=== PATIENT | male | born 1965 | race Caucasian/White ===

== ENCOUNTER 2018-04-17 12:01 | Observation (INO) | payer MEDICARE ==
[~2018-04-17] VITALS: Ht 188 cm; Wt 106.7 kg
[2018-04-17 12:33] LABS: BASOPHILS ABSOLUTE AUTO 0.05 K/mm3 (0.00-0.23); BASOPHILS PERCENT AUTO 1 % (0-2); EOSINOPHILS ABSOLUTE AUTO 0.07 K/mm3 (0.00-0.68); EOSINOPHILS PERCENT AUTO 1 % (0-6); Hematocrit 46.7 % (37.0-53.0); Hemoglobin 16.1 g/dL (13.5-17.5); IMMATURE GRAN ABSOLUTE AUTO 0.08 K/mm3 (0.00-0.10); IMMATURE GRAN PERCENT AUTO 1 % (0-1); LYMPHOCYTES ABSOLUTE AUTO 1.93 K/mm3 (0.84-5.20); LYMPHOCYTES PERCENT AUTO 24 % (21-46); MONOCYTES ABSOLUTE AUTO 0.57 K/mm3 (0.16-1.47); MONOCYTES PERCENT AUTO 7 % (4-13); Mean Corpuscular HGB Conc 34.5 g/dL (31.5-36.5); Mean Corpuscular Volume 90 fL (80-100); Mean Platelet Volume 9.5 fL (9.1-12.4); NEUTROPHILS ABSOLUTE AUTO 5.45 K/mm3 (1.96-9.15); NEUTROPHILS PERCENT AUTO 67 % (41-73); Platelet Count 217 K/mm3 (150-400); RDW Coefficient Variation 12.4 % (11.7-14.2); RDW Standard Deviation 40.8 fL (35.1-46.3); Red Blood Cell Count 5.19 M/mm3 (4.30-5.90); White Blood Cell Count 8.15 K/mm3 (4.00-11.30)
[2018-04-17 12:55] LABS: Alanine Aminotransfer (ALT/SGP 29 U/L (12-78); Albumin/Globulin Ratio 1.1 (0.8-1.8); Alk Phos 62 U/L (50-136); Anion Gap 4 mmol/L (6-16); Aspartate Aminotrans (AST/SGOT 19 U/L (12-37); Bilirubin, Total 0.2 mg/dL (0.1-1.0); Blood Urea Nitrogen 13 mg/dL (8-24); Bun/Creatinine Ratio 15.9 (12.0-20.0); CO2, Blood 28 mmol/L (21-32); Chloride, Blood 105 mmol/L (98-108); Creatinine, Blood 0.82 mg/dL (0.60-1.20); Globulin, Blood 3.6 g/dL (2.2-4.0); Glomerular Filtration Rate >60 (60-); Glucose, Blood 99 mg/dL (70-99); Potassium, Blood 4.6 mmol/L (3.5-5.5); Sodium, Blood 137 mmol/L (136-145); Total Protein, Blood 7.6 g/dL (6.4-8.2); Troponin I 0.036 ng/mL (0.000-0.040)
[2018-04-17] MEDS ORDERED: OXYCODONE HCL E20 MG PO (13:47)
[2018-04-17] MEDS ORDERED: METO50ER PO (13:48)
[2018-04-17] MEDS ORDERED: OMEPRAZOLE MAGN20 MG PO (13:48)
[2018-04-17] MEDS ORDERED: CELE200 PO (13:48)
[2018-04-17] MEDS ORDERED: CYCL10 PO (13:49)
[2018-04-17] MEDS ORDERED: Zantac150 MG PO (13:50)
--- NOTE | 2018-04-17 18:35 | NUR ---
SHIFT SUMMARY PATIENT PLEASANT. ALERT AND ORIENTED INDEPENDENT. PATIENT ADMITTED UNDER OBSERVATION, HE IS TO HAVE A STRESS TEST TOMORROW. 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 HE DENIES ANY ACUTE CONCERNS. HE HAS A HISTORY OF ANGINA WITH NO CAUSE, AND DENIES HISTORY OF HEART ATTACK.
--- NOTE | 2018-04-18 04:48 | NUR ---
SHIFT SUMMARY PT SLEPT T/O NIGHT. AOX4. VSS. REPORTED 3/10 L. CHEST CRAMPING LAST NIGHT BUT DENIED NEED FOR ANY PAIN MEDICATION, INSTEAD ASKED FOR PECID & WAS MEDICATED PER ORDERS. THIS AM PT DENIES ANY CHEST PAIN & STATES HE IS FEELING "OKAY". PT DENIES SOB, CHILLS OR N/V. PT NPO @ THIS TIME PER ORDERS DUE TO PENDING TIME OF STRESS TEST. CALL LIGHT IS IN REACH & WILL CONT. TO MONITOR PT UNTIL DAY SHIFT RN ARRIVES.
[2018-04-18 08:21] LABS: CHOL/HDL RATIO 6.5; Cholesterol 183 mg/dL (50-200); HDL Cholesterol 28 mg/dL (>39); LDL/HDL RATIO 3.9; Low Density Lipoprotein Chol 110 mg/dL (0-110); Triglycerides 225 mg/dL (30-160); Very Low Density Lipoprot Chol 45 mg/dL (6-32)
--- NOTE | 2018-04-18 08:24 | NUR ---
HERE TO SEE.
--- NOTE | 2018-04-18 08:28 | NUR ---
PER PATIENT REFUSES ANGIO HERE, WANTS TO HAVE PROCEDURE IN [facility]. STS WILL CHECK MEDS TO SEE IF ANY NEED TO BE CHANGED. CALLED DR. LAU AND STS SHE WILL COME AND SEE PATIENT.
[2018-04-18] MEDS ORDERED: ATOR40TA PO (10:46)
[2018-04-18] MEDS ORDERED: CLOP75 PO (10:46)
[2018-04-18] MEDS ORDERED: NITR.4SL SL (10:48)
--- NOTE | 2018-04-18 11:15 | NUR ---
REVIEW [facility] INSTRUCTIONS. REVIEW NEW MEDS THAT WERE FAXED TO [facility]. AWARE IF HAS CHEST PAIN TO CALL HIS DOCTOR EVEN IF NITRO HELPS. AWARE IF NITRO DOES NOT HELP TO TAKE AMBULANCE TO [facility]. [facility] DOCTOR HAZEL IN [place] HAS ARRANGED FOR CARDIOLOGY F/U IN [employer] [facility]. AWARE TO CALL BOTH PLACES AND MAKE SURE HE IS SEEN WITHIN NEXT FEW DAYS. ANSWER ALL QUESTIONS. DENIES ANY CHEST PAIN AT THIS TIME. AWARE THAT HE NEEDS ANGIOGRAM HE MAKE NEED STENTS. [facility] WANTS TO HAVE ANGUIOGRAM IN [facility] AND [facility] IS AWARE OF THE RISK OF LEAVING HERE WITHOUT HAVING PROCEDURE. IN W/C W/ESCORT TO POV W/ 2 ADULTS.
== END 2018-04-18 11:31 | disposition home or self-care (01) ==
LOC: ER 12:01 → MEDS 12:02 → ENPENDDIS 04-18 10:00 → MEDS 04-18 11:31
PROVIDERS: Emergency Medicine; ADMIT Family Medicine
DX: I21.4 Non-ST elevation (NSTEMI) myocardial infarction (principal); I10 Essential (primary) hypertension; E78.5 Hyperlipidemia, unspecified; Q07.00 Arnold-Chiari syndrome without spina bifida or hydrocephalus; G89.29 Other chronic pain; K21.9 Gastro-esophageal reflux disease without esophagitis; F17.200 Nicotine dependence, unspecified, uncomplicated; Z88.0 Allergy status to penicillin; Z88.5 Allergy status to narcotic agent; Z88.8 Allergy status to other drugs, medicaments and biological substances; Z79.899 Other long term (current) drug therapy; Z82.49 Family history of ischemic heart disease and other diseases of the circulatory system
CPT/HCPCS: 36415; 71046; 80053; 80061; 83880; 84484; 85025; 85379; 93005; 93010; 93306; 96374; 99285-25; G0378; J2405

== ENCOUNTER 2024-12-04 13:02 | Emergency (ER) | payer OTHER ==
[~2024-12-04] VITALS: Ht 188 cm; Wt 104.3 kg
[~2024-12-04 13:02] MED LIST: ATOR40TA PO; CELE200 PO; CLOP75 PO; CYCL10 PO; METO50ER PO; NITR.4SL SL; OMEPRAZOLE MAGN20 MG PO; OXYCODONE HCL E20 MG PO; Zantac150 MG PO
[2024-12-04] MEDS ORDERED: Ondansetron HCl 2 MG / ML 2ML Vial IV PRN (13:30)
[2024-12-04 13:41] LABS: BASOPHILS ABSOLUTE AUTO 0.04 K/mm3 (0.00-0.23); BASOPHILS PERCENT AUTO 1 % (0-2); EOSINOPHILS ABSOLUTE AUTO 0.18 K/mm3 (0.00-0.68); EOSINOPHILS PERCENT AUTO 2 % (0-6); Hematocrit 44.6 % (37.0-53.0); Hemoglobin 15.8 g/dL (13.5-17.5); IMMATURE GRAN ABSOLUTE AUTO 0.07 K/mm3 (0.00-0.10); IMMATURE GRAN PERCENT AUTO 1 % (0-1); LYMPHOCYTES ABSOLUTE AUTO 2.04 K/mm3 (0.84-5.20); LYMPHOCYTES PERCENT AUTO 27 % (21-46); MONOCYTES ABSOLUTE AUTO 0.54 K/mm3 (0.16-1.47); MONOCYTES PERCENT AUTO 7 % (4-13); Mean Corpuscular HGB Conc 35.4 g/dL (31.5-36.5); Mean Corpuscular Volume 88 fL (80-100); NEUTROPHILS ABSOLUTE AUTO 4.68 K/mm3 (1.96-9.15); NEUTROPHILS PERCENT AUTO 62 % (41-73); NRBC ABSOLUTE 0.00 K/mm3 (0.00-0.02); NRBC Auto 0.0 /100 WBC (0.0-0.2); Platelet Count 188 K/mm3 (150-400); RDW Coefficient Variation 12.0 % (11.7-14.2); RDW Standard Deviation 39.0 fL (35.1-46.3)
[2024-12-04 14:35] LABS: Alanine Aminotransfer (ALT/SGP 21.0 U/L (12-78); Albumin, Blood 3.8 g/dL (3.4-5.0); Albumin/Globulin Ratio 1.2 (0.8-1.8); Anion Gap 8.0 mmol/L (3-11); Aspartate Aminotrans (AST/SGOT 19.0 U/L (12-37); Bilirubin, Total 0.5 mg/dL (0.1-1.0); Blood Urea Nitrogen 11.0 mg/dL (8-24); CO2, Blood 25.0 mmol/L (21-32); Calcium, Blood 8.5 mg/dL (8.5-10.1); Chloride, Blood 110.0 mmol/L (98-108); Creatinine, Blood 0.7 mg/dL (0.60-1.20); Globulin, Blood 3.3 g/dL (2.2-4.0); Glucose, Blood 124.0 mg/dL (70-99); Potassium, Blood 4.1 mmol/L (3.5-5.5); Sodium, Blood 139.0 mmol/L (136-145); Total Protein, Blood 7.1 g/dL (6.4-8.2)
[2024-12-04 15:47] VITALS: BP 162/92
== END 2024-12-04 17:41 | disposition home or self-care (01) ==
LOC: ER 13:02
PROVIDERS: Emergency Medicine
DX: I20.9 Angina pectoris, unspecified (principal); J44.9 Chronic obstructive pulmonary disease, unspecified; R73.9 Hyperglycemia, unspecified; Z88.0 Allergy status to penicillin; Z91.013 Allergy to seafood; Z88.6 Allergy status to analgesic agent; Z88.5 Allergy status to narcotic agent; Z79.02 Long term (current) use of antithrombotics/antiplatelets; Z79.899 Other long term (current) drug therapy; Z59.89 Other problems related to housing and economic circumstances
CPT/HCPCS: 71046; 80053; 83690; 84484; 85025; 93005; 93010; 99285-25